=== PATIENT | female | born 1985 | race Caucasian/White ===

== ENCOUNTER 2019-05-16 10:22 | Emergency (ER) | payer BC, OTHER ==
[~2019-05-16] VITALS: Ht 167.6 cm; Wt 102.1 kg
--- OUTSIDE RECORDS SUMMARY | 2019-05-16 10:26 | XMS REPORT | Continuity of Care Document ---
Author Author [employer] Address Unknown Phone Unavailable Care Team Providers Care Personnel Manager Name Role Phone Revaluate Information [employer] Unavailable Unavailable Problems Problem Status Onset Date Classification Date Reported Comments Source Immunization due 01/25/2019 Diagnosis 01/25/2019 [facility] Acute pharyngitis 01/25/2019 Diagnosis 01/25/2019 [facility] Feeling feverish 01/25/2019 Diagnosis 01/25/2019 [facility] Acute upper respiratory infection 01/25/2019 Diagnosis 01/25/2019 [facility] Nausea 01/25/2019 Diagnosis 01/25/2019 [facility] Body mass index 30+ - obesity 01/25/2019 Diagnosis 01/25/2019 [facility] Elevated blood-pressure reading without diagnosis of hypertension 01/25/2019 Diagnosis 01/25/2019 [facility] Body Mass Index 30+ - Obesity 01/08/2018 Problem 01/25/2019 [facility] Influenza-like Symptoms 01/08/2018 Problem 01/08/2018 [facility] Cigarette Smoker 01/08/2018 Problem 01/25/2019 [facility] Influenza-like symptoms 01/08/2018 Diagnosis 01/08/2018 [facility] Cigarette smoker 01/08/2018 Diagnosis 01/08/2018 [facility] Eustachian Tube Disorder Problem 01/08/2018 [facility] Allergic Rhinitis Problem 01/25/2019 [facility] Streptococcal Sore Throat Problem 07/20/2016 [facility] Smoker Problem 07/20/2016 [facility] Otitis Media Problem 07/20/2016 [facility] Acute Sinusitis Problem 07/20/2016 [facility] Laryngitis Problem 07/20/2016 [facility] Acute Upper Respiratory Infection Problem 07/20/2016 [facility] Gastroenteritis Problem 07/20/2016 [facility] Expiratory Wheezing Problem 07/20/2016 [facility] Medications Medication Details Route Status Patient Instructions Ordering Provider Order Date Source benzonatate 200 MG Oral Capsule benzonatate 200 mg capsule Take 1 capsule 3 times a day by oral route as needed. Active [facility] Prednisone 20 MG Oral Tablet prednisone 20 mg tablet Take 1 tablet twice a day by oral route as directed for 5 days. Take with food. Active [facility] Hyoscyamine Sulfate 0.125 MG Sublingual Tablet [Levsin] Levsin/SL 0.[address] 1 tablet every 4 hours by sublingual route as needed for abdominal cramps/pain for 5 days. Active [facility] Ondansetron 8 MG Disintegrating Oral Tablet [Zofran] Zofran ODT [address] 1 tablet every 8 hours by translingual route as needed for nausea for 5 days. Active [facility] Brompheniramine Maleate 0.4 MG/ML / Dextromethorphan Hydrobromide 2 MG/ML / Pseudoephedrine Hydrochloride 6 MG/ML Oral Solution [Bromfed DM] Bromfed DM 2 mg-30 mg-10 mg/5 mL oral syrup Take 10 mL every 4 hours by oral route as needed. Active [facility] Fluticasone propionate 0.05 MG/ACTUAT Metered Dose Nasal [place] fluticasone propionate 50 mcg/actuation nasal spray,suspension [place] 1 spray twice a day by intranasal route for 7 days. Active [facility] Ondansetron 4 MG Disintegrating Oral Tablet ondansetron 4 mg disintegrating tablet Take 1 tablet every 8 hours by oral route as needed. Active [facility] Phentermine Hydrochloride 37.5 MG Oral Tablet phentermine 37.5 mg tablet TK ONE T PO QD Active [facility] Allergies, Adverse Reactions, Alerts No Known Medication Allergies Immunizations Immunization Date Given Site Status Last Updated Comments Source Tdap 11/04/2011 completed [facility] Results Order Name Results Value Reference Range Date Interpretation Comments Source RESULT negative 01/25/2019 [facility] SWAB LOCATION Left and Right tonsillar pillars 01/25/2019 [facility] Influenza A negative 01/25/2019 [facility] Influenza B negative 01/25/2019 [facility] Influenza A negative 01/08/2018 [facility] Influenza B negative 01/08/2018 [facility] Pathology Reports No Data Provided for This Section Diagnostic Reports No Data Provided for This Section Consultation Notes No Data Provided for This Section Discharge Summaries No Data Provided for This Section History and Physicals No Data Provided for This Section Vital Signs Vital Sign Value Date Comments Source Diastolic (mm Hg) 96 01/25/2019 [facility] Height 67 01/25/2019 [facility] Systolic (mm Hg) 126 01/25/2019 [facility] Weight 226 01/25/2019 [facility] Diastolic (mm Hg) 74 01/08/2018 [facility] Height 66 01/08/2018 [facility] Systolic (mm Hg) 112 01/08/2018 [facility] Weight 204 01/08/2018 [facility] Diastolic (mm Hg) 88 07/20/2016 [facility] Height 66 07/20/2016 [facility] Systolic (mm Hg) 126 07/20/2016 [facility] Weight 198 07/20/2016 [facility] Encounters Location Location Details Encounter Type Encounter Number Reason For Visit Attending Provider ADM Date DC Date Status Source [place] - [facility] - [id number] HAFSA GutierrezP: [address] [place] [address], Ph. [id number] Elizabeth Stanley 07/20/2016 [facility] [place] [facility] - [id number] HAFSA ColladoP-C: [address] [place] [address], Ph. [id number] Jennifer Leonard 01/08/2018 [facility] [place] - [facility] - [id number] Janet De Leon [employer]-C: [address] [place] [address], Ph. [id number] Janet De Leon 01/25/2019 [facility] Procedures Procedure Code Date Perfomer Comments Source 11/06/2010 [facility] Removal of Fallopian Tube 30245 11/06/2003 [facility] Removal of Ovary/tube(s) 29845 11/06/2003 [facility] Removal of Fallopian Tube 11/06/2003 [facility] Removal of Ovary/tube(s) 11/06/2003 [facility] Assessment and Plan No Data Provided for This Section Plan of Care No Data Provided for This Section Social History Social History Date Source Smoking Status Former Smoker 11/04/2014 [facility] Family History No Data Provided for This Section Advance Directives No Data Provided for This Section Functional Status No Data Provided for This Section
--- OUTSIDE RECORDS SUMMARY | 2019-05-16 10:26 | XMS REPORT | Encounter Summary ---
Author Organization Unknown Address [address] [place] [address] Phone [phone] Reason for Visit Medical Complaint Instructions 1. Influenza-like symptoms rapid flu (A+B) benzonatate 200 mg capsule prednisone 20 mg tablet 2. Cigarette smoker 3. Body mass index 30+ - obesity Discussion Note Pt is in NAD; Verbalizes understanding of all instructions with no questions at this time. Patient educational handouts: No information available. Plan of Care Patient Instructions Take fluticasone over the counter as needed for congestion. [place] one spray in each nostril twice a day. Take a warm, steamy shower, blow your nose thereafter, and spray in each nostril. Tilt your head up for about 10 seconds and breath through your mouth. Do not sniff or snort the medication in or else the medication will go to your throat and not be absorbed appropriately. Take steroid taper as dire cted and with food to avoid heartburn. Take benzonatate for cough as directed. Take medications as prescribed and follow up with a PCP within 2-3 if symptoms worsen as discussed. Recommend follow a low sodium/fat/carb diet and exercise 30-45 mins/d 3-4 days a week once symptoms resolve. I recommend smoking cessation. Reminders Provider Appointments None recorded. Lab Rapid Flu (A+B) 01/08/2018 [facility] Referral None recorded. Procedures None recorded. Surgeries None recorded. Imaging None recorded. Medications Name Start Date benzonatate 200 mg capsule Take 1 capsule 3 times a day by oral route as needed. prednisone 20 mg tablet Take 1 tablet twice a day by oral route as directed for 5 days. Take with food. Medications Administered None recorded. Vitals Height Weight BMI Blood Pressure 5 ft 6 in 204 lbs 32.9 kg/m2 112/74 mm[Hg] Lab Results Date Name Specimen Result Interpretation Description Value Range Status Address Rapid Flu (A+B) Influenza a negative [facility]: [address] [place] [address] Influenza B negative [facility]: [address] [place] [address] Allergies Code Code System Name Reaction Severity Status Onset NKDA Problems Name Status Onset Date Source Body Mass Index 30+ - Obesity Active 01/08/2018 Influenza-like Symptoms Active 01/08/2018 Cigarette Smoker Active 01/08/2018 Eustachian Tube Disorder Active Encounter Allergic Rhinitis Active Encounter Procedures Date Name Performed by 11/06/2010 Information not available 11/06/2003 Removal of Fallopian Tube Information not available 11/06/2003 Removal of Ovary/tube(s) Information not available Vaccine List None recorded. Social History Smoking Status Current Every Day Smoker Past Encounters 01/08/2018 Influenza-like Symptoms; Cigarette Smoker; Body Mass Index 30+ - Obesity Jennifer Aisha, [facility]-C: [address] [place] [address], Ph. History of Present Illness Irbvmch-Zuzfu-Pul Reported By: Patient HPI: Quality: symptoms worse during the day. Duration: 2 days. Context: no ill contacts, no tick/insect bites, no recent travel, no new medications; Pt is a cigarette smoker. Associated Symptoms: no fever/chills, no headache, no muscle aches, no rash, no lethargy, cough, nasal passage blockage (stuffiness), nasal discharge; sneezing, body aches and chills. Modifying Factors nothing gives relief Review of Systems:ROS as noted in the HPI Review of Systems Basic Reported By: Patient Physical Exam Adult Basic, Adult Female Complete Reported By: Patient Constitutional: General Appearance: obese. Level of Distress: NAD. Ambulation: ambulating normally Psychiatric: Mental Status: active and alert. Orientation: to time, to place, to person Qro-Wmsd-Qjzdg-Throat: Ears: no lesions on external ear, no outer ear tenderness, EACs clear, TMs clear. Hearing: no hearing loss. Nose: no lesions on external nose, nares patent, no septal deviation, nasal passages clear, no sinus tenderness, nasal discharge--rhinorrhea, post nasal drip. Lips, Teeth, and Gums: no mouth or lip ulcers, no bleeding gums, normal dentition. Oropharynx: moist mucous membranes, no erythema, no exudates, tonsils not enlarged Neck: Lymph Nodes: no cervical LAD Lungs: Respiratory effort: no dyspnea, no tachypnea, no use of accessory muscles, no intercostal retractions. Auscultation: breath sounds normal Cardiovascular: Heart Auscultation: RRR, no murmurs Neurologic: Gait and Station: normal gait, normal station
--- OUTSIDE RECORDS SUMMARY | 2019-05-16 10:26 | XMS REPORT | Encounter Summary ---
Author Organization Unknown Address [address] [place] [address] Phone [phone] Reason for Visit Medical Complaint Instructions 1. Acute upper respiratory infection upper respiratory infection (cold): care instructions fluticasone propionate 50 mcg/actuation nasal spray,suspension Bromfed DM 2 mg-30 mg-10 mg/5 mL oral syrup 2. Nausea nausea and vomiting: care instructions ondansetron 4 mg disintegrating tablet 3. Acute pharyngitis rapid strep group A, throat 4. Feeling feverish rapid flu (A+B) 5. Elevated blood-pressure reading without diagnosis of hypertension elevated blood pressure: care instructions 6. Body mass index 30+ - obesity A healthy lifestyle: care instructions 7. Immunization due Discussion Note: None recorded. Plan of Care Patient Instructions See care instructions provided. Reminders Provider Appointments None recorded. Lab Rapid Flu (A+B) 01/25/2019 [facility] Rapid Strep Group a, Throat 01/25/2019 [facility] Referral None recorded. Procedures None recorded. Surgeries None recorded. Imaging None recorded. Medications Name Start Date Bromfed DM 2 mg-30 mg-10 mg/5 mL oral syrup Take 10 mL every 4 hours by oral route as needed. fluticasone propionate 50 mcg/actuation nasal spray,suspension [place] 1 spray twice a day by intranasal route for 7 days. ondansetron 4 mg disintegrating tablet Take 1 tablet every 8 hours by oral route as needed. phentermine 37.5 mg tablet TK ONE T PO QD Medications Administered None recorded. Vitals Height Weight BMI Blood Pressure 5 ft 7 in 226 lbs 35.4 kg/m2 126/96 mm[Hg] Lab Results Date Name Specimen Result Interpretation Description Value Range Status Address Rapid Strep Group a, Throat Result negative [facility]: [address] [place] [address] Swab Location Left and Right tonsillar pillars [facility]: [address] [place] [address] Rapid Flu (A+B) Influenza a negative [facility]: [address] [place] [address] Influenza B negative [facility]: [address] [place] [address] Allergies Code Code System Name Reaction Severity Status Onset NKDA Problems Name Status Onset Date Source Body Mass Index 30+ - Obesity Active 01/08/2018 Cigarette Smoker Active 01/08/2018 Allergic Rhinitis Active Encounter Procedures Date Name Performed by 11/06/2010 Information not available 11/06/2003 Removal of Fallopian Tube Information not available 11/06/2003 Removal of Ovary/tube(s) Information not available Vaccine List Vaccine Type Tdap 11/04/2011 Social History Smoking Status Former Smoker Past Encounters 01/25/2019 Acute Upper Respiratory Infection; Nausea; Acute Pharyngitis; Feeling Feverish; Elevated Blood-pressure Reading without Diagnosis of Hypertension; Body Mass Index 30+ - Obesity; Immunization Due Janet Mosies, [facility]-C: [address] [place] [address], Ph. History of Present Illness Tdxyb-Krghqhilnr-Ebdvoxr Reported By: Patient HPI: Location: head/sinuses, throat. Quality: productive cough, sore throat, nasal/sinus congestion, dry cough. Duration: 1days. Onset/Timing: gradual. Context: no sick contacts, no foreign travel, non-smoker, allergies. Modifying factors: OTC medication. Associated Symptoms: no sputum production, no shortness of breath, no wheezing, no change in number of pillows needed to sleep at night, no sweats, no significant weight gain, no significant weight loss, no morning cough, no rash, no fever, fatigue, sore throat, diarrhea, nausea, muscle aches, headache Review of Systems:ROS as noted in the HPI Review of Systems Basic Reported By: Patient Physical Exam Adult Basic, Adult Female Complete Reported By: Patient Constitutional: General Appearance: obese. Level of Distress: NAD. Ambulation: ambulating normally Psychiatric: Mental Status: active and alert. Orientation: to time, to place, to person Eyes: Lids and Conjunctivae: non-injected, no discharge, no pallor Wle-Tnuw-Mgeaf-Throat: Ears: no lesions on external ear, no outer ear tenderness, EACs clear, TM opacified. Hearing: no hearing loss. Nose: no lesions on external nose, nares patent, no septal deviation, nasal passages clear, no sinus tenderness, nasal discharge--rhinorrhea, post nasal drip. Lips, Teeth, and Gums: no mouth or lip ulcers, no bleeding gums, normal dentition. Oropharynx: moist mucous membranes, no exudates, tonsils not enlarged, erythema Lungs: Respiratory effort: no dyspnea, no tachypnea, no use of accessory muscles, no intercostal retractions. Auscultation: breath sounds normal Cardiovascular: Heart Auscultation: RRR, no murmurs Abdomen: Bowel Sounds: normal. Inspection and Palpation: soft, non-distended, no guarding, no rebound tenderness, no masses, no CVA tenderness, LLQ tenderness, RLQ tenderness. Liver: non-tender, no hepatomegaly. Spleen: non-tender, no splenomegaly. Hernia: none palpable
--- OUTSIDE RECORDS SUMMARY | 2019-05-16 10:27 | XMS REPORT | Encounter Summary ---
Author Organization Unknown Address [address] [place] [address] Phone [phone] Reason for Visit Medical Complaint; stomach issues started this am Instructions 1. Gastroenteritis Levsin/SL 0.125 mg sublingual tablet Zofran ODT 8 mg disintegrating tablet Discussion Note: None recorded. Patient educational handouts: No information available. Plan of Care Patient Instructions Drink plenty of fluidsand get lots of rest. Try eat bland food like banana, chicken noodle soup, rice, applesauce, toast. Take medication as prescribed for indicate of length of time. If vomitting/diarrhea continue and cannot hold down any food/beverages, please go to nearest emergency center for further care. If no improvement in 2-3 days or worsening of symptoms, follow up with primary care physican. May continue pepto bismo x 2 days, no immodium for now. Reminders Provider Appointments None recorded. Lab None recorded. Referral None recorded. Procedures None recorded. Surgeries None recorded. Imaging None recorded. Medications Name Start Date Levsin/SL 0.[address] 1 tablet every 4 hours by sublingual route as needed for abdominal cramps/pain for 5 days. Zofran ODT [address] 1 tablet every 8 hours by translingual route as needed for nausea for 5 days. Medications Administered None recorded. Vitals Height Weight BMI Blood Pressure 5 ft 6 in 198 lbs 32 126/88 Lab Results None recorded. Allergies Name Reaction Severity Onset NKDA Problems Name Status Onset Date Source Streptococcal Sore Throat Active Encounter Smoker Active Encounter Eustachian Tube Disorder Active Encounter Otitis Media Active Encounter Acute Sinusitis Active Encounter Laryngitis Active Encounter Acute Upper Respiratory Infection Active Encounter Allergic Rhinitis Active Encounter Gastroenteritis Active Encounter Expiratory Wheezing Active Encounter Procedures Date Name Performed by 11/06/2003 Removal of Fallopian Tube Information not available 11/06/2003 Removal of Ovary/tube(s) Information not available Vaccine List None recorded. Social History Smoking Status Current Every Day Smoker Past Encounters 07/20/2016 Gastroenteritis Elizbaeth Stanley, [employer]: [address] [place] [address], Ph. History of Present Illness Ztrwaz-Auqpyabi-Saubawdt / Abdominal Pain Reported By: Patient HPI: Quality: frequent. Severity: moderate. Duration: present for < 1 week. Onset/Timing: abrupt onset. Context: no one else with similar symptoms, no recent camping, no recent picnic, no possible food sources, no recent travel, last bowel movement:. Alleviating factors: Peptobismal. Aggravating factors: eating. Associated Symptoms: no excess gas, no fever, no rash, no joint pain, no weight loss, no h eartburn, no blood in stool, no mucus in stool, no black or tarry stools, no weakness, no nutrient deficiency, no feeling of fullness/mass in throat, no bitter taste in the mouth, no difficulty swallowing (dysphagia), abdominal pain, nausea, vomiting Review of Systems Basic Reported By: Patient Constitutional: Constitutional: no fever Eyes: Eyes: no eye complaints Nugv-Vwuz-Npetk-Throat: Ears: no ear complaints. Nose: no nose/sinus problems. Mouth/Throat: no sore throat, no bleeding gums, no mouth complaints, no teeth problems Cardiovascular: Cardiovascular: no chest pain, no shortness of breath, no known heart murmur Respiratory: Respiratory: no cough, no wheezing, no shortness of breath Gastrointestinal: Gastrointestinal: abdominal pain, vomiting Genitourinary: Genitourinary: no urinary complaints, no discharge Musculoskeletal: Musculoskeletal: no muscle weakness, no arthralgias/joint pain, no back pain, muscle aches Skin: Skin: no abnormal / changing mole, no jaundice, no rashes Neurologic: Neurologic: no loss of consciousness, no weakness, no numbness, no seizures, no dizziness, no headaches Physical Exam Adult Basic, Adult Female Complete Constitutional: General Appearance: healthy-appearing, well-nourished, well-developed. Level of Distress: NAD. Ambulation: ambulating normally Psychiatric: Mental Status: active and alert. Orientation: to time, to place, to person Eyes: Lids and Conjunctivae: non-injected, no discharge, no pallor. Pupils: PERRLA. Corneas: grossly intact. EOM: EOMI. Lens: clear. Sclerae: non-icteric. Vision: acuity grossly intact Vqi-Hibt-Scigh-Throat: Ears: no lesions on external ear, no outer ear tenderness, EACs clear, TMs clear. Hearing: no hearing loss. Nose: no lesions on external nose, nares patent, no septal deviation, nasal passages clear, no sinus tenderness, no nasal discharge. Lips, Teeth, and Gums: no mouth or lip ulcers, no bleeding gums, normal dentition. Oropharynx: moist mucous membranes, no erythema, no exudates, tonsils not enlarged Neck: Neck: supple, trachea midline, no masses, FROM. Lymph Nodes: no cervical LAD, no supraclavicular LAD. Thyroid: no enlargement, non-tender, no nodules Lungs: Respiratory effort: no dyspnea, no tachypnea, no use of accessory muscles, no intercostal retractions. Auscultation: breath sounds normal Cardiovascular: Heart Auscultation: RRR, no murmurs. Neck vessels: no carotid bruits Abdomen: Bowel Sounds: normal. Inspection and Palpation: soft, non-distended, no guarding, no rebound tenderness, no masses, no CVA tenderness, LUQ tenderness. Liver: non-tender, no hepatomegaly. Spleen: non-tender, no splenomegaly. Hernia: none palpable
[2019-05-16] MEDS ORDERED: KETOROLAC TROMETHAMINE 60 MG/2 ML VIAL IM ONE (11:00)
[2019-05-16] MEDS ORDERED: DIAZEPAM 5 MG TAB PO ONE (11:00)
[2019-05-16] MEDS ORDERED: NAPROXEN250 MG PO (11:55)
[2019-05-16] MEDS ORDERED: ROBAXIN-750750 MG PO (11:55)
[2019-05-16] MEDS ORDERED: SODIUM CHLORIDE 0.9% 1000ML 2,000 ML ONE (15:41)
== END 2019-05-16 12:14 | disposition home or self-care (01) ==
LOC: ER 10:22
DX: M94.0 Chondrocostal junction syndrome [Tietze] (principal); R07.89 Other chest pain
CPT/HCPCS: 99283; J1885; J7030

== ENCOUNTER 2020-07-29 18:30 | Emergency (ER) | payer BC ==
[~2020-07-29] VITALS: Ht 167.6 cm; Wt 102.1 kg
[2020-07-29] MEDS ORDERED: SODIUM CHLORIDE 0.9% 1000ML 1,000 ML IV STA (18:42)
[2020-07-29] MEDS ORDERED: KETOROLAC TROMETHAMINE 30 MG/ML VIAL IV STA (18:44)
[2020-07-29] MEDS ORDERED: ONDANSETRON HCL INJ 2MG/ML 2ML 2 MG/ML VIAL IV STA (18:44)
--- NOTE | 2020-07-29 18:46 | Emergency Department Note ---
History of Present Illnes History of Present Illness Chief Complaint: General Medicine Complaints History of Present Illness This is a 34 year old female presents to the ED for R flank pain of 5 days duration. Historian: Patient Arrival Mode: Car Onset (how long ago): day(s) (5) Severity: moderate Onset quality: gradual Duration (how long): day(s) (5) Timing of current episode: constant Progression: worsening Context: Denies recent illness, Denies recent surgery, Denies recent immobiliz ation, Denies recent travel, Denies trauma/injury, Denies new medications, Denies hx of DVT/PE, Denies non-compliance w/ medications, Denies other Relieving factors: none Exacerbating factors: none Associated symptoms: Denies denies other symptoms, Denies confusion, Denies chest pain, Denies cough, Denies diaphoresis, Denies fever/chills, Denies headaches, Denies loss of appetite, Denies malaise, Denies nausea/vomiting, Denies rash, Denies seizure, Denies shortness of breath, Denies syncope, Denies weakness, Denies other Previous service: tests performed, one or more referrals Past Medical/Family History Physician Review I have reviewed the patient's past medical and family history. Any updates have been documented here. Past Medical History Recent Fever: No Clinical Suspicion of Infectio: No New/Unexplained Change in Ment: No Past Medical History: None Past Surgical History: Other Surgery: Oophorectomy left Social History Smoking Cessation: Never Smoker Alcohol Use: None Any Illegal Drug Use: No Physically hurt or threatened: No Other Last Tetanus: UNKNOWN Review of Systems Review of Systems Constitutional: Reports no symptoms EENTM: Reports no symptoms Cardiovascular: Reports no symptoms Respiratory: Reports no symptoms Gastrointestinal: Reports nausea Genitourinary: Reports other Musculoskeletal: Reports no symptoms Integumentary: Reports no symptoms Neurological: Reports no symptoms Psychological: Reports no symptoms Endocrine: Reports no symptoms Hematological/Lymphatic: Reports no symptoms Physical Exam Related Data Allergies: Coded Allergies: No Known Allergies (Unverified , 05/16/19) Triage Vital Signs Vital Signs Date Time Temp Pulse Resp B/P (MAP) Pulse Ox O2 Delivery O2 Flow Rate FiO2 07/29/20 18:36 97.8 93 15 168/106 100 Room Air Physical Exam CONSTITUTIONAL Constitutional: Present ill appearing HENT HENT: Present normocephalic, Present atraumatic, Present oropharynx clear/moist, Present nose normal HENT L/R: Present left ext ear normal, Present right ext ear normal EYES Eyes: Reports PERRL, Reports conjunctivae normal NECK Neck: Present ROM normal PULMONARY Pulmonary: Present effort normal, Present breath sounds normal CARDIOVASCULAR Cardiovascular: Present regular rhythm, Present heart sounds normal, Present capillary refill normal, Present normal rate GASTROINTESTINAL Abdominal: Present soft, Present right CVA tenderness GENITOURINARY Genitourinary: Present exam deferred SKIN Skin: Present warm, Present dry MUSCULOSKELETAL Musculoskeletal: Present ROM normal NEUROLOGICAL Neurological: Present alert, Present oriented x 3, Present no gross motor or sensory deficits PSYCHOLOGICAL Psychological: Present mood/affect normal, Present judgement normal Results Laboratory Lab results reviewed: Yes Laboratory comments Laboratory Tests Test 07/29/20 21:35 07/29/20 20:35 07/29/20 18:47 Urine Color Yellow (YELLOW) Urine Clarity Clear (CLEAR) Urine pH 6 (5 - 7) Urine Specific [place] 1.010 (1.010-1.025) Urine Protein Negative (NEGATIVE) Urine Glucose (UA) Negative (NEGATIVE) Urine Ketones Trace (NEGATIVE) Urine Blood Negative (NEGATIVE) Urine Nitrite Negative (NEGATIVE) Urine Bilirubin Negative (NEGATIVE) Urine Urobilinogen 0.2 mg/dL (0.2 - 1) Urine Leukocyte Esterase Negative (NEGATIVE) Urine RBC None /HPF (0-5) Urine WBC None /HPF (0-5) Urine Epithelial Cells None /LPF (NONE) Urine Bacteria None /HPF (NONE) White Blood Count 17.84 x10e3/uL (4.8-10.8) Red Blood Count 5.47 x10e6/uL (3.6-5.1) Hemoglobin 15.7 g/dL (12.0-16.0) Hematocrit 47.1 % (34.2-44.1) Mean Corpuscular Volume 86.1 fL (81-99) Mean Corpuscular Hemoglobin 28.7 pg (28-32) Mean Corpuscular Hemoglobin Concent 33.3 g/dL (31-35) Red Cell Distribution Width 13.1 % (11.7-14.4) Platelet Count 303 x10e3/uL (140-360) Neutrophils (%) (Auto) 74.2 % (38.7-80.0) Lymphocytes (%) (Auto) 19.6 % (18.0-39.1) Monocytes (%) (Auto) 4.4 % (4.4-11.3) Eosinophils (%) (Auto) 0.6 % (0.0-6.0) Basophils (%) (Auto) 0.3 % (0.0-1.0) Neutrophils # (Auto) 13.2 (2.1-6.9) Lymphocytes # (Auto) 3.5 (1.0-3.2) Monocytes # (Auto) 0.8 (0.2-0.8) Eosinophils # (Auto) 0.1 (0.0-0.4) Basophils # (Auto) 0.1 (0.0-0.1) Absolute Immature Granulocyte (auto 0.16 x10e3/uL (0-0.1) Sodium Level 139 mmol/L (136-145) Potassium Level 3.7 mmol/L (3.5-5.1) Chloride Level 104 mmol/L (98-107) Carbon Dioxide Level 24 mmol/L (22-29) Anion Gap 14.7 mmol/L (8-16) Blood Urea Nitrogen 7 mg/dL (7-26) Creatinine 0.84 mg/dL (0.57-1.11) Estimat Glomerular Filtration Rate > 60 ML/MIN (60-) BUN/Creatinine Ratio 8 (6-25) Glucose Level 106 mg/dL (74-118) Calcium Level 9.3 mg/dL (8.4-10.2) Total Bilirubin 0.8 mg/dL (0.2-1.2) Aspartate Amino Transf (AST/SGOT) 12 IU/L (5-34) Alanine Aminotransferase (ALT/SGPT) 18 IU/L (0-55) Alkaline Phosphatase 70 IU/L (40-150) Total Protein 7.8 g/dL (6.5-8.1) Albumin 4.6 g/dL (3.5-5.0) Globulin 3.2 g/dL (2.3-3.5) Albumin/Globulin Ratio 1.4 (0.8-2.0) Lipase 13 U/L (8-78) Human Chorionic Gonadotropin, Qual Negative (NEGATIVE) Imaging Imaging results reviewed: Yes Impressions [place] [id number] [place] [address] Patient Name: VALARIE LANDON MR #: [id number] : 1985 Age/Sex: 34/F Req #: [id number] Adm Physician: Ordered by: MIGUEL MELENDEZ DO Report #: [id number] Location: ER Room/Bed: Procedure: [id number] CT/CT ABDOMEN/PELVIS W Exam Date: 07/29/20 Exam Time: 2008 REPORT STATUS: Signed EXAM: CT Abdomen and Pelvis WITH contrast INDICATION: Right flank pain COMPARISON: None. TECHNIQUE: Abdomen and pelvis were scanned utilizing a multidetector helical scanner from the lung base to the pubic symphysis after administration of IV contrast. Coronal and sagittal reformations were obtained. Routine protocol was performed. Scan was performed when during portal venous phase. IV CONTRAST: 100 mL of Isovue 370 ORAL CONTRAST: None COMPLICATIONS: None RADIATION DOSE: Total DLP: 911.49 mGy*cm Estimated effective dose: (DLP x 0.015 x size factor) mSv CTDIvol has been reviewed. It is below the limits set by the Radiation Protocol Committee (RPC). Dose modulation, iterative reconstruction, and/or weight based adjustment of the mA/kV was utilized to reduce the radiation dose to as low as reasonably achievable. FINDINGS: LINES and TUBES: None. LOWER THORAX: Unremarkable HEPATOBILIARY: The liver is diffuse hypodense compared to the spleen, consistent with diffuse hepatic diffuse hepatic steatosis. No focal hepatic lesions. No biliary ductal dilation. GALLBLADDER: No radio-opaque stones or sludge. No wall thickening. SPLEEN: No splenomegaly. PANCREAS: No focal masses or ductal dilatation. ADRENALS: No adrenal nodules KIDNEYS/URETERS: Kidneys enhance symmetrically. No hydronephrosis. No cystic or solid mass lesions. No stones. GI TRACT: No abnormal distention, wall thickening, or evidence of bowel obstruction. Appendix is normal. PELVIC ORGANS/BLADDER: Unremarkable. LYMPH NODES: No lymphadenopathy. VESSELS: Scattered mild arterial vascular calcifications. PERITONEUM / RETROPERITONEUM: No free air or fluid. BONES: Unremarkable. SOFT TISSUES: Unremarkable. IMPRESSION: No acute abdominopelvic abnormality identified, specifically no obstructive renal or ureteral stones. Signed by: Crystal Moctezuma MD on 07/29/2020 8:59 PM Dictated By: CRYSTAL MOCTEZUMA MD 58 Transcribed By: LESVIA on 07/29/202058 COPY TO: MIGUEL MELENDEZ DO~ Assessment & Plan Medical Decision Making MDM Diff Dx : appendicitis, kidney stone, kidney infection, musc strain, perforated viscus Reassessment Reassessment Marked improvement in symptoms . Case d/w Dr Hester who agreed to see patient as an outpatient in the next 24 hour prior Assessment & Plan Final Impression: (1) Flank pain (2) Leukocytosis Depart Disposition: HOME, SELF-CARE Last Vital Signs Date Time Temp Pulse Resp B/P (MAP) Pulse Ox O2 Delivery O2 Flow Rate FiO2 07/29/20 18:36 97.8 93 15 168/106 100 Room Air Home Meds Active Scripts Methocarbamol (ROBAXIN-750) 750 Mg Tablet, 750 MG PO Q8HR PRN for MUSCLE SPASMS, #12 Prov:JERICA BARCENAS DO 05/16/19 Naproxen (NAPROXEN) 250 Mg Tablet, 250 MG PO F2TADWD, #10 TAB Prov:JERICA BARCENAS DO 05/16/19 Medications in the ED Sodium Chloride 1,000 ml @ 0 mls/hr Q0M STAT IV ; Start 07/29/20 at 18:42; Stop 07/29/20 at 18:44; Status DC MIGUEL MELENDEZ DO Jul 29, 2020 18:46
[2020-07-29 19:08] LABS: BASOPHILS # (AUTO) 0.1 (0.0-0.1); BASOPHILS % 0.3 % (0.0-1.0); EOSINOPHILS # (AUTO) 0.1 (0.0-0.4); EOSINOPHILS % 0.6 % (0.0-6.0); HEMATOCRIT 47.1 % (34.2-44.1); HEMOGLOBIN 15.7 g/dL (12.0-16.0); LYMPHOCYTES # (AUTO) 3.5 (1.0-3.2); LYMPHOCYTES % 19.6 % (18.0-39.1); MEAN CORPUSCULAR HEMOGLOBIN 28.7 pg (28-32); MEAN CORPUSCULAR HGB CONC 33.3 g/dL (31-35); MEAN CORPUSCULAR VOLUME 86.1 fL (81-99); MONOCYTES # (AUTO) 0.8 (0.2-0.8); MONOCYTES % 4.4 % (4.4-11.3); NEUTROPHILS # (AUTO) 13.2 (2.1-6.9); NEUTROPHILS % 74.2 % (38.7-80.0); PLATELET COUNT 303 x10e3/uL (140-360); RED BLOOD COUNT 5.47 x10e6/uL (3.6-5.1); RED CELL DISTRIBUTION WIDTH 13.1 % (11.7-14.4)
[2020-07-29 19:26] LABS: ALANINE AMINOTRANSFERASE 18 IU/L (0-55); ALBUMIN 4.6 g/dL (3.5-5.0); ALBUMIN/GLOBULIN RATIO 1.4 (0.8-2.0); ALKALINE PHOSPHATASE 70 IU/L (40-150); ANION GAP 14.7 mmol/L (8-16); BLOOD UREA NITROGEN 7 mg/dL (7-26); BUN/CREATININE RATIO 8 (6-25); CALCIUM 9.3 mg/dL (8.4-10.2); CARBON DIOXIDE 24 mmol/L (22-29); CHLORIDE 104 mmol/L (98-107); CREATININE, SERUM 0.84 mg/dL (0.57-1.11); EST GLOMERULAR FILTRATION RATE > 60 ML/MIN (60-); GLUCOSE 106 mg/dL (74-118); LIPASE 13 U/L (8-78); POTASSIUM 3.7 mmol/L (3.5-5.1); SODIUM 139 mmol/L (136-145)
[2020-07-29] MEDS ORDERED: MORPHINE SULFATE INJ 4 MG/ML INJ 1ML IV STA (19:30)
[2020-07-29] MEDS ORDERED: PIPER-TAZ 3.375 GM 50 ML IV SCH (19:45)
[2020-07-29] MEDS ORDERED: IOPAMIDOL 370 MG/ML 200 ML INFUS..BTL INJ ONE (20:27)
[2020-07-29] MEDS ORDERED: SODIUM CHLORIDE 0.9% 50ML 50 ML ONE (20:27)
--- NOTE | 2020-07-29 21:02 | Diagnostic Imaging Report ---
EXAM: CT Abdomen and Pelvis WITH contrast INDICATION: Right flank pain COMPARISON: None. TECHNIQUE: Abdomen and pelvis were scanned utilizing a multidetector helical scanner from the lung base to the pubic symphysis after administration of IV contrast. Coronal and sagittal reformations were obtained. Routine protocol was performed. Scan was performed when during portal venous phase. IV CONTRAST: 100 mL of Isovue 370 ORAL CONTRAST: None COMPLICATIONS: None RADIATION DOSE: Total DLP: 911.49 mGy*cm Estimated effective dose: (DLP x 0.015 x size factor) mSv CTDIvol has been reviewed. It is below the limits set by the Radiation Protocol Committee (RPC). Dose modulation, iterative reconstruction, and/or weight based adjustment of the mA/kV was utilized to reduce the radiation dose to as low as reasonably achievable. FINDINGS: LINES and TUBES: None. LOWER THORAX: Unremarkable HEPATOBILIARY: The liver is diffuse hypodense compared to the spleen, consistent with diffuse hepatic diffuse hepatic steatosis. No focal hepatic lesions. No biliary ductal dilation. GALLBLADDER: No radio-opaque stones or sludge. No wall thickening. SPLEEN: No splenomegaly. PANCREAS: No focal masses or ductal dilatation. ADRENALS: No adrenal nodules KIDNEYS/URETERS: Kidneys enhance symmetrically. No hydronephrosis. No cystic or solid mass lesions. No stones. GI TRACT: No abnormal distention, wall thickening, or evidence of bowel obstruction. Appendix is normal. PELVIC ORGANS/BLADDER: Unremarkable. LYMPH NODES: No lymphadenopathy. VESSELS: Scattered mild arterial vascular calcifications. PERITONEUM / RETROPERITONEUM: No free air or fluid. BONES: Unremarkable. SOFT TISSUES: Unremarkable. IMPRESSION: No acute abdominopelvic abnormality identified, specifically no obstructive renal or ureteral stones. Signed by: Colin Rothman MD on 07/29/2020 8:59 PM
[2020-07-29 22:02] LABS: BILIRUBIN,URINE NEGATIVE (NEGATIVE); CLARITY,URINE CLEAR (CLEAR); COLOR,URINE YELLOW (YELLOW); KETONES,URINE TRACE (NEGATIVE); LEUKOCYTE ESTERASE ,URINE NEGATIVE (NEGATIVE); NITRITE,URINE NEGATIVE (NEGATIVE); PROTEIN,URINE DIPSTICK NEGATIVE (NEGATIVE); URINE UROBILINOGEN 0.2 mg/dL (0.2 - 1)
== END 2020-07-29 22:13 | disposition home or self-care (01) ==
LOC: ER 18:45
DX: M54.5 Low back pain (principal); D72.829 Elevated white blood cell count, unspecified
CPT/HCPCS: 36415; 74177; 80053; 81001; 83690; 84702; 85025; 99284; J1885; J2270; J2405; J2543; J7030; Q9967; U0002

== ENCOUNTER → 2020-07-29 | Outpatient (CLI) | payer BC ==
[~2020-07-29] MED LIST: NAPROXEN250 MG PO; ROBAXIN-750750 MG PO
--- NOTE | 2020-07-29 16:57 | Diagnostic Imaging Report ---
EXAMINATION: CHEST 2 VIEWS INDICATION: Chest pain COMPARISON: Chest radiograph 06/16/2007 FINDINGS: LINES/TUBES:None LUNGS:The lungs are moderately inflated. Left basilar subsegmental atelectasis. No focal pneumonia or pulmonary edema. PLEURA:No pleural effusion or pneumothorax. MEDIASTINUM:The cardiomediastinal silhouette appears normal in size and shape. BONES/SOFT TISSUES:No acute osseous injury. ABDOMEN:No free air under the diaphragm. IMPRESSION: Left basilar subsegmental atelectasis. No focal pneumonia or pulmonary edema. Signed by: Ankit Daniels MD on 07/29/2020 4:53 PM
--- NOTE | 2020-07-29 16:58 | Diagnostic Imaging Report ---
EXAMINATION: RIBS UNILAT W/CXR INDICATION: Chest pain COMPARISON: Chest radiograph 07/29/2020 FINDINGS: LINES/TUBES:None LUNGS:The lungs are moderately inflated. No focal consolidation or pulmonary edema. Left basilar subsegmental atelectasis. PLEURA:No pleural effusion or pneumothorax. MEDIASTINUM:The cardiomediastinal silhouette appears normal in size and shape. BONES/SOFT TISSUES:No acute osseous injury. ABDOMEN:No free air under the diaphragm. IMPRESSION: No displaced rib fracture. Signed by: Ankit Daniels MD on 07/29/2020 4:55 PM
--- NOTE | 2020-07-29 18:59 | Diagnostic Imaging Report ---
EXAM: Complete Abdominal Ultrasound INDICATION: RIGHT UPPER QUADRANT PAIN COMPARISON: None. TECHNIQUE: Transverse and longitudinal images of the upper abdomen were obtained. FINDINGS: Liver: Size: 17.5 cm in the right midclavicular line, normal Appearance: Slightly echogenic, smooth contour Mass: No focal masses Spleen: Size: 13.3 x 4.6 x 5.0 cm in length, normal Echogenicity: Normal Mass: No focal masses Gallbladder: Stones/Sludge: None Wall: 0.2 cm Appearance: No pericholecystic fluid or hydrops. Sonographic Valdez's Sign: Negative Bile Ducts: Intrahepatic Ducts: No dilatation Extrahepatic Ducts: Common bile duct measures 0.6 cm, no dilatation Pancreas: Visualized portions of the pancreatic head, neck and proximal body are normal. Right Kidney: Size: 11.1 x 4.4 x 4.7 cm Echogenicity: Normal Parenchymal thickness: Normal Collecting System: No hydronephrosis Stone: None Cyst/Mass: None Left Kidney: Size: 12.0 x 5.2 x 6.7 cm Echogenicity: Normal Parenchymal thickness: Normal Collecting System: No hydronephrosis Stone: None Cyst/Mass: None Vessels: Aorta: Visualized portions are normal Inferior Vena Cava: Visualized portions are normal Main Portal Vein: 0.7 cm, normal size with hepatopetal flow. Free Fluid: No ascites or pleural effusion IMPRESSION: Mild hepatomegaly with steatosis. Otherwise normal sonographic exam. Signed by: Colin Rothman MD on 07/29/2020 6:55 PM
== END ==
LOC: US 16:25
PROVIDERS: ATTEND Family Medicine
DX: R10.11 Right upper quadrant pain (principal); R07.89 Other chest pain; F17.200 Nicotine dependence, unspecified, uncomplicated
CPT/HCPCS: 71046; 71101; 76700

== ENCOUNTER 2023-04-25 14:38 | Inpatient (IN) | payer BC, OTHER ==
[~2023-04-25] VITALS: Ht 167.6 cm; Wt 102.1 kg
[2023-04-25] MEDS ORDERED: ENALAPRILAT IV INJ 1.25 MG/ML VIAL IV STA ×2 (14:53→17:35)
[2023-04-25] MEDS ORDERED: DIAZEPAM 5 MG TAB PO ONE (15:00)
[2023-04-25 15:05] LABS: BASOPHILS # (AUTO) 0.1 (0.0-0.1); BASOPHILS % 0.3 % (0.0-1.0); EOSINOPHILS # (AUTO) 0.1 (0.0-0.4); EOSINOPHILS % 0.8 % (0.0-6.0); HEMATOCRIT 43.6 % (34.2-44.1); HEMOGLOBIN 14.9 g/dL (12.0-16.0); LYMPHOCYTES # (AUTO) 3.1 (1.0-3.2); LYMPHOCYTES % 21.2 % (18.0-39.1); MEAN CORPUSCULAR HEMOGLOBIN 29.1 pg (28-32); MEAN CORPUSCULAR HGB CONC 34.2 g/dL (31-35); MEAN CORPUSCULAR VOLUME 85.2 fL (81-99); MONOCYTES # (AUTO) 0.7 (0.2-0.8); MONOCYTES % 4.6 % (4.4-11.3); NEUTROPHILS # (AUTO) 10.6 (2.1-6.9); NEUTROPHILS % 72.6 % (38.7-80.0); PLATELET COUNT 280 x10e3/uL (140-360); RED BLOOD COUNT 5.12 x10e6/uL (3.6-5.1); RED CELL DISTRIBUTION WIDTH 12.9 % (11.7-14.4)
[2023-04-25 15:19] LABS: ANION GAP 13.5 mmol/L (8-16); CREATININE, SERUM 0.72 mg/dL (0.57-1.11); POTASSIUM 3.5 mmol/L (3.5-5.1)
[2023-04-25] MEDS ORDERED: HEPARIN SOD (PORCINE) 5,000 UNIT/ML VIAL IV ONE (17:45)
[2023-04-25] MEDS ORDERED: FENTANYL CITRATE/PF 100MCG/2 ML INJ IV ONE ×2 (17:45→19:15)
[2023-04-25] MEDS ORDERED: METOCLOPRAMIDE HCL 10 MG/2ML VIAL IV ONE (17:45)
[2023-04-25] MEDS ORDERED: IOPAMIDOL 370 MG/ML 100 ML INFUS..BTL INJ ONE (18:15)
[2023-04-25] MEDS ORDERED: SODIUM CHLORIDE 0.9% 100 ML ONE (18:15)
[2023-04-25] MEDS ORDERED: HYDRALAZINE HCL 20 MG/ML VIAL IV STA (19:11)
[2023-04-25] MEDS ORDERED: HYDRALAZINE HCL 25 MG TAB PO ONE (19:15)
[2023-04-25] MEDS ORDERED: SODIUM CHLORIDE FLUSH 10 ML SYR INJ PRN (19:30)
[2023-04-25 21:20] VITALS: BP 173/101; PULSE 63; RESP 18; TEMP 98.4; O2SAT 97
[2023-04-25] MEDS: CLONIDINE HCL 0.1 MG TAB PO SCH (22:07)
[2023-04-25] MEDS ORDERED: LOSARTAN POTASSIUM 100 MG TAB PO ONE (22:15)
[2023-04-25] MEDS ORDERED: Morphine 2mg Syringe 2 MG/ML SYR IV PRN (22:15)
[2023-04-25] MEDS ORDERED: METHYLPREDNISOLONE SOD SUCC 125 MG/2ML VIAL IV ONE (22:30)
[2023-04-25] MEDS: ONDANSETRON HCL INJ 2MG/ML 2ML 2 MG/ML VIAL IV PRN (22:40)
[2023-04-25] MEDS ORDERED: METHYLPREDNISOLONE SOD SUCC 40 MG/ML VIAL 1ML IV ONE (22:45)
[2023-04-25 22:53] VITALS: BP 173/101; PULSE 64; RESP 22; TEMP 98.4; O2SAT 100
[2023-04-26] VITALS (7 sets, daily range): BP systolic 133–184; BP diastolic 70–101; PULSE 59–92; RESP 18–22; TEMP 97.4–98.6; O2SAT 97–100
[2023-04-26 01:02] LABS: CREATINE KINASE 76 IU/L (29-168)
[2023-04-26] MEDS: ONDANSETRON HCL INJ 2MG/ML 2ML 2 MG/ML VIAL IV PRN ×4 (03:02→19:33)
[2023-04-26] MEDS: Morphine 2mg Syringe 2 MG/ML SYR IV PRN ×5 (03:03→19:34)
[2023-04-26 05:56] LABS: BASOPHILS % 0.3 % (0.0-1.0); HEMATOCRIT 47.1 % (34.2-44.1); HEMOGLOBIN 15.7 g/dL (12.0-16.0); LYMPHOCYTES # (AUTO) 1.4 (1.0-3.2); LYMPHOCYTES % 10.2 % (18.0-39.1); MEAN CORPUSCULAR HEMOGLOBIN 28.9 pg (28-32); MEAN CORPUSCULAR HGB CONC 33.3 g/dL (31-35); MEAN CORPUSCULAR VOLUME 86.7 fL (81-99); MONOCYTES # (AUTO) 0.1 (0.2-0.8); MONOCYTES % 0.6 % (4.4-11.3); NEUTROPHILS # (AUTO) 12.3 (2.1-6.9); PLATELET COUNT 242 x10e3/uL (140-360); RED BLOOD COUNT 5.43 x10e6/uL (3.6-5.1); RED CELL DISTRIBUTION WIDTH 12.8 % (11.7-14.4)
[2023-04-26] MEDS: CLONIDINE HCL 0.1 MG TAB PO SCH ×3 (05:59→21:38)
[2023-04-26 06:26] LABS: ANION GAP 14.6 mmol/L (8-16); CALCIUM 9.1 mg/dL (8.4-10.2); CREATININE, SERUM 0.75 mg/dL (0.57-1.11); POTASSIUM 3.6 mmol/L (3.5-5.1)
[2023-04-26] MEDS: HYDRALAZINE HCL 20 MG/ML VIAL IV PRN (08:28)
[2023-04-26 17:35] LABS: CREATINE KINASE 80 IU/L (29-168)
[2023-04-26] MEDS: PREGABALIN 75 MG CAP PO SCH (21:38)
[2023-04-26] MEDS: METHYLPREDNISOLONE SOD SUCC 40 MG/ML VIAL 1ML INJ SCH (21:39)
[2023-04-26] MEDS ORDERED: METHYLPREDNISOLONE SOD SUCC 125 MG/2ML VIAL IV SCH (22:00)
[2023-04-27] VITALS (10 sets, daily range): BP systolic 159–203; BP diastolic 78–97; PULSE 63–98; RESP 17–20; TEMP 98–98.7; O2SAT 98–100
[2023-04-27] MEDS: Morphine 2mg Syringe 2 MG/ML SYR IV PRN ×4 (00:01→18:38)
[2023-04-27] MEDS: HYDRALAZINE HCL 20 MG/ML VIAL IV PRN ×2 (00:02→15:53)
[2023-04-27] MEDS: ONDANSETRON HCL INJ 2MG/ML 2ML 2 MG/ML VIAL IV PRN (00:02)
[2023-04-27] MEDS ORDERED: Morphine 2mg Syringe 2 MG/ML SYR IV ONE (02:15)
[2023-04-27] MEDS: CLONIDINE HCL 0.1 MG TAB PO SCH ×3 (05:14→22:03)
[2023-04-27] MEDS: METHYLPREDNISOLONE SOD SUCC 40 MG/ML VIAL 1ML INJ SCH (05:14)
[2023-04-27] MEDS: PREGABALIN 75 MG CAP PO SCH ×3 (08:57→20:24)
[2023-04-27] MEDS ORDERED: SUGAMMADEX SODIUM 200 MG/2 ML VIAL IV ONE ×2 (10:54→12:41)
[2023-04-27] MEDS ORDERED: ACETAMINOPHEN 1000 MG/100 ML 100 ML IV ONE (10:54)
[2023-04-27] MEDS ORDERED: BUPIVACAINE 0.5%/EPI 30 ML SDV INJ ONE (10:56)
[2023-04-27] MEDS ORDERED: Vancomycin IV 1 GM VIAL ONE (10:56)
[2023-04-27] MEDS ORDERED: THROMBIN FOR SOLN 5,000 UNIT VIAL ONE (10:56)
[2023-04-27] MEDS ORDERED: CEFAZOLIN SODIUM 2 GM ONE ×2 (11:08→11:14)
[2023-04-27] MEDS ORDERED: HYDROCODON-ACE1 EAC9 PO (12:43)
[2023-04-27] MEDS ORDERED: VALIUM5 MG PO (12:45)
[2023-04-27] MEDS ORDERED: MAGNESIUM/ALUMINUM/SIMETHICONE 30 ML UDC PO PRN (12:45)
[2023-04-27] MEDS ORDERED: CARISOPRODOL 350 MG TAB PO PRN (12:45)
[2023-04-27] MEDS ORDERED: PROMETHAZINE HCL (IM) 25 MG/ML VIAL IM PRN (12:45)
[2023-04-27] MEDS ORDERED: DIAZEPAM 5 MG TAB PO PRN (12:45)
[2023-04-27] MEDS ORDERED: ONDANSETRON HCL INJ 2MG/ML 2ML 2 MG/ML VIAL IV PRN (12:45)
[2023-04-27] MEDS ORDERED: ZOLPIDEM TARTRATE 5 MG TAB PO PRN (12:45)
[2023-04-27] MEDS ORDERED: FENTANYL CITRATE/PF 100MCG/2 ML INJ ONE ×2 (13:07→13:31)
[2023-04-27] MEDS ORDERED: OXYCODONE/ACETAMINOPHEN 5-325 1 EACH TABLET PO PRN (13:15)
[2023-04-27] MEDS ORDERED: KETOROLAC TROMETHAMINE 30 MG/ML VIAL ONE (13:28)
[2023-04-27] MEDS ORDERED: LIDOCAINE HCL 2% LOCAL INJ 5 ML SDV VIAL INJ ONE (13:28)
[2023-04-27] MEDS ORDERED: ONDANSETRON HCL INJ 2MG/ML 2ML 2 MG/ML VIAL ONE (13:28)
[2023-04-27] MEDS ORDERED: POVIDONE IODINE 0.05% 0.05 % ML PO ONE (13:28)
[2023-04-27] MEDS ORDERED: SEVOFLURANE INHAL SOLN 250 ML PEN BTL ONE (13:28)
[2023-04-27] MEDS ORDERED: DEXAMETHASONE SOD PHOS INJ 4 MG/ML SDV ONE (13:28)
[2023-04-27] MEDS ORDERED: ROCURONIUM BROMIDE 10 MG/ML 5ML VIAL IV ONE (13:28)
[2023-04-27] MEDS ORDERED: PROPOFOL IV EMULSION 10 MG/ML 20 ML VIAL ONE (13:28)
[2023-04-27] MEDS ORDERED: DEXAMETHASONE SOD PHOS 10 MG/1 ML VIAL IV SCH (14:00)
[2023-04-27] MEDS: LACTATED RINGER'S 1,000 ML IV SCH ×2 (14:03→22:11)
[2023-04-27] MEDS: DEXAMETHASONE SOD PHOS INJ 4 MG/ML SDV IV SCH (17:21)
[2023-04-27] MEDS: HYDROMORPHONE 2MG/ML 2 MG/ML ML IV PRN (22:08)
[2023-04-28] VITALS (9 sets, daily range): BP systolic 141–198; BP diastolic 74–99; PULSE 64–95; RESP 16–20; TEMP 97.7–98.4; O2SAT 97–99
[2023-04-28] MEDS: Morphine 2mg Syringe 2 MG/ML SYR IV PRN ×2 (01:14→06:53)
[2023-04-28] MEDS: CEPACOL SORE THROAT LOZENGES PO PRN ×4 (03:33→23:18)
[2023-04-28] MEDS: HYDROMORPHONE 2MG/ML 2 MG/ML ML IV PRN (03:34)
[2023-04-28] MEDS: LACTATED RINGER'S 1,000 ML IV SCH (03:52)
[2023-04-28] MEDS: DEXAMETHASONE SOD PHOS INJ 4 MG/ML SDV IV SCH ×5 (03:53→23:36)
[2023-04-28] MEDS: CLONIDINE HCL 0.1 MG TAB PO SCH ×3 (06:10→23:20)
[2023-04-28] MEDS: PREGABALIN 75 MG CAP PO SCH ×2 (09:12→16:52)
[2023-04-28] MEDS: LOSARTAN POTASSIUM 25 MG TAB PO SCH ×2 (09:13→18:40)
[2023-04-28] MEDS: METOPROLOL SUCCINATE 25 MG TAB XL PO SCH (09:14)
[2023-04-28] MEDS: OXYCODONE/ACETAMINOPHEN 5-325 1 EACH TABLET PO PRN ×2 (09:22→20:07)
[2023-04-28] MEDS ORDERED: ONDANSETRON HCL 4 MG ORAL DISINTEGRATING TAB PO PRN (10:00)
[2023-04-28] MEDS: HYDRALAZINE HCL 20 MG/ML VIAL IV PRN (13:33)
[2023-04-28] MEDS: ACETAMINOPHEN 325 MG TAB PO PRN (20:02)
[2023-04-28] MEDS ORDERED: KETOROLAC TROMETHAMINE 30 MG/ML VIAL IV ONE (22:00)
[2023-04-29] VITALS (11 sets, daily range): BP systolic 154–204; BP diastolic 76–101; PULSE 53–68; RESP 15–18; TEMP 97.6–98.5; O2SAT 96–100
[2023-04-29] MEDS: PREGABALIN 75 MG CAP PO SCH ×4 (03:36→20:32)
[2023-04-29] MEDS: DEXAMETHASONE SOD PHOS INJ 4 MG/ML SDV IV SCH ×4 (05:27→23:35)
[2023-04-29] MEDS: CLONIDINE HCL 0.1 MG TAB PO SCH ×3 (05:27→22:00)
[2023-04-29] MEDS: METOPROLOL SUCCINATE 25 MG TAB XL PO SCH (09:00)
[2023-04-29] MEDS: LOSARTAN POTASSIUM 25 MG TAB PO SCH ×2 (09:00→17:00)
[2023-04-29] MEDS: HYDRALAZINE HCL 20 MG/ML VIAL IV PRN ×2 (10:19→20:38)
[2023-04-29] MEDS: CEPACOL SORE THROAT LOZENGES PO PRN (20:31)
[2023-04-30] VITALS (8 sets, daily range): BP systolic 152–189; BP diastolic 76–103; PULSE 60–77; RESP 14–20; TEMP 97.4–98.4; O2SAT 94–100
[2023-04-30] MEDS: HYDRALAZINE HCL 20 MG/ML VIAL IV PRN ×2 (00:26→08:57)
[2023-04-30] MEDS: CLONIDINE HCL 0.1 MG TAB PO SCH ×4 (00:29→20:22)
[2023-04-30] MEDS: DEXAMETHASONE SOD PHOS INJ 4 MG/ML SDV IV SCH (05:34)
[2023-04-30 07:01] LABS: BASOPHILS % 0.2 % (0.0-1.0)
[2023-04-30 07:44] LABS: ALBUMIN 3.5 g/dL (3.5-5.0); ALBUMIN/GLOBULIN RATIO 1.2 (0.8-2.0); CALCIUM 8.6 mg/dL (8.4-10.2); CREATININE, SERUM 0.71 mg/dL (0.57-1.11)
[2023-04-30] MEDS: METOPROLOL TARTRATE 25 MG TAB PO SCH ×2 (08:56→16:52)
[2023-04-30] MEDS: AMLODIPINE BESYLATE 5 MG TAB PO SCH (08:56)
[2023-04-30] MEDS: PREGABALIN 75 MG CAP PO SCH ×3 (08:56→20:18)
[2023-04-30] MEDS: LOSARTAN POTASSIUM 25 MG TAB PO SCH ×2 (08:57→16:52)
[2023-04-30 09:15] LABS: HEMOGLOBIN 15.5 g/dL (12.0-16.0); RED BLOOD COUNT 5.34 x10e6/uL (3.6-5.1)
[2023-04-30 09:16] LABS: HEMATOCRIT 46.6 % (34.2-44.1); LYMPHOCYTES % 12.2 % (18.0-39.1); MEAN CORPUSCULAR HGB CONC 33.3 g/dL (31-35); MEAN CORPUSCULAR VOLUME 87.3 fL (81-99); MONOCYTES % 3.8 % (4.4-11.3); NEUTROPHILS % 82.6 % (38.7-80.0); PLATELET COUNT 211 x10e3/uL (140-360); RED CELL DISTRIBUTION WIDTH 12.6 % (11.7-14.4)
[2023-04-30 09:17] LABS: LYMPHOCYTES # (AUTO) 1.6 (1.0-3.2); MONOCYTES # (AUTO) 0.5 (0.2-0.8); NEUTROPHILS # (AUTO) 10.8 (2.1-6.9)
[2023-04-30] MEDS: ACETAMINOPHEN 325 MG TAB PO PRN ×2 (12:42→20:18)
[2023-04-30] MEDS ORDERED: AMLODIPINE BESYLATE 10 MG TAB PO ONE (13:30)
[2023-04-30] MEDS ORDERED: LOSARTAN POTASSIUM 100 MG TAB PO ONE (13:30)
[2023-04-30] MEDS: CEPACOL SORE THROAT LOZENGES PO PRN (20:17)
[2023-05-01] VITALS: BP 128/73; PULSE 57; RESP 18; TEMP 98.4; O2SAT 97
[2023-05-01] MEDS: CEPACOL SORE THROAT LOZENGES PO PRN ×2 (01:27→14:10)
[2023-05-01] MEDS: CLONIDINE HCL 0.1 MG TAB PO SCH (06:00)
[2023-05-01] MEDS: HYDRALAZINE HCL 20 MG/ML VIAL IV PRN (06:12)
[2023-05-01 08:07] VITALS: BP 167/86; PULSE 65; RESP 18; TEMP 97.7; O2SAT 97
[2023-05-01 08:14] VITALS: BP 167/86; PULSE 65; RESP 18; TEMP 97.7; O2SAT 97
[2023-05-01] MEDS: AMLODIPINE BESYLATE 5 MG TAB PO SCH (08:46)
[2023-05-01] MEDS: PREGABALIN 75 MG CAP PO SCH ×2 (08:46→15:33)
[2023-05-01] MEDS: METOPROLOL TARTRATE 25 MG TAB PO SCH ×2 (08:47→17:16)
[2023-05-01] MEDS: ACETAMINOPHEN 325 MG TAB PO PRN ×2 (08:47→14:11)
[2023-05-01] MEDS: LOSARTAN POTASSIUM 25 MG TAB PO SCH ×2 (08:48→17:16)
[2023-05-01] MEDS ORDERED: CLONIDINE HCL 0.1 MG TAB PO PRN (10:45)
[2023-05-01] MEDS ORDERED: NIFEDIPINE CR 30 MG TAB PO ONE (11:15)
[2023-05-01 12:06] VITALS: BP 152/98; PULSE 60; RESP 17; TEMP 97.7; O2SAT 100
[2023-05-01 15:37] VITALS: BP 157/77; PULSE 70; RESP 18; TEMP 98.5; O2SAT 100
[2023-05-01] MEDS ORDERED: NIFEDIPINE CR 30 MG TAB PO SCH (17:00)
[2023-05-01] MEDS ORDERED: LOSARTAN POTASS25 MG PO (18:30)
[2023-05-01] MEDS ORDERED: LYRICA75 MG PO (18:31)
[2023-05-01] MEDS ORDERED: METOPROLOL TART25 MG PO (18:31)
[2023-05-01] MEDS ORDERED: PROCARDIA XL30 MG (18:31)
[2023-05-01] MEDS ORDERED: CRESTOR 10MG PO SCH (21:00)
== END 2023-05-02 07:16 | disposition home or self-care (01) | DRG 983 ==
LOC: ER 14:44 → ERHOLD 19:22 → MED/SURG2 21:23 → OBSVTOIN 04-27 08:45
PROVIDERS: ADMIT Family Medicine; ATTEND Family Medicine
PROC: 0RB30ZZ Excision of Cervical Vertebral Disc, Open Approach (ICD-10-PCS; 2023-04-27)
PROC: 00NW0ZZ Release Cervical Spinal Cord, Open Approach (ICD-10-PCS; 2023-04-27)
PROC: 0RG10K0 Fusion of Cervical Vertebral Joint with Nonautologous Tissue Substitute, Anterior Approach, Anterior Column, Open Approach (ICD-10-PCS; principal; 2023-04-27 11:18)
DX: I16.9 Hypertensive crisis, unspecified (principal); M50.121 Cervical disc disorder at C4-C5 level with radiculopathy; I10 Essential (primary) hypertension; G44.89 Other headache syndrome; E78.5 Hyperlipidemia, unspecified; F41.9 Anxiety disorder, unspecified; Z20.822 Contact with and (suspected) exposure to COVID-19; Z87.891 Personal history of nicotine dependence
CPT/HCPCS: 36415; 70450; 70496; 70498; 71045; 72040; 72141; 76000; 80048; 80053; 80061; 82550; 83735; 84484; 84702; 85025; 88304; 88311; 93005; 99284; C1713; G0378; J0690; J1100; J1885; J2001; J2270; J2405; J2765; J2920; J7050; Q9967

== ENCOUNTER 2023-05-01 19:24 | Emergency (ER) | payer OTHER ==
[~2023-05-01] VITALS: Ht 167.6 cm; Wt 102.1 kg
[~2023-05-01 19:24] MED LIST changes: +HYDROCODON-ACE1 EAC9 PO; +LOSARTAN POTASS25 MG PO; +LYRICA75 MG PO; +METOPROLOL TART25 MG PO; +PROCARDIA XL30 MG; +VALIUM5 MG PO
[2023-05-01 19:50] LABS: BASOPHILS % 0.2 % (0.0-1.0); EOSINOPHILS # (AUTO) 0.1 (0.0-0.4); EOSINOPHILS % 0.5 % (0.0-6.0); HEMATOCRIT 46.4 % (34.2-44.1); HEMOGLOBIN 16.1 g/dL (12.0-16.0); LYMPHOCYTES # (AUTO) 5.6 (1.0-3.2); LYMPHOCYTES % 26.8 % (18.0-39.1); MEAN CORPUSCULAR HEMOGLOBIN 29.1 pg (28-32); MEAN CORPUSCULAR HGB CONC 34.7 g/dL (31-35); MEAN CORPUSCULAR VOLUME 83.9 fL (81-99); MONOCYTES # (AUTO) 1.8 (0.2-0.8); MONOCYTES % 8.4 % (4.4-11.3); NEUTROPHILS # (AUTO) 13.2 (2.1-6.9); NEUTROPHILS % 63.1 % (38.7-80.0); PLATELET COUNT 244 x10e3/uL (140-360); RED BLOOD COUNT 5.53 x10e6/uL (3.6-5.1)
[2023-05-01 20:03] LABS: ALBUMIN 3.6 g/dL (3.5-5.0); ALBUMIN/GLOBULIN RATIO 1.2 (0.8-2.0); ANION GAP 14.5 mmol/L (8-16); CALCIUM 9.1 mg/dL (8.4-10.2); CREATININE, SERUM 0.81 mg/dL (0.57-1.11); POTASSIUM 3.5 mmol/L (3.5-5.1)
[2023-05-01] MEDS ORDERED: IOPAMIDOL 370 MG/ML 100 ML INFUS..BTL INJ ONE (20:15)
[2023-05-01] MEDS ORDERED: ACETAMINOPHEN 325 MG TAB PO ONE (21:15)
[2023-05-01] MEDS ORDERED: DEXAMETHASONE SOD PHOS 10 MG/1 ML VIAL IV ONE (22:45)
[2023-05-02 00:57] VITALS: BP 155/98; PULSE 62; RESP 17; TEMP 97.9; O2SAT 97
== END 2023-05-02 01:05 | disposition other institution (70) ==
LOC: ER 19:31
DX: H54.3 Unqualified visual loss, both eyes (principal); I10 Essential (primary) hypertension; Z20.822 Contact with and (suspected) exposure to COVID-19
CPT/HCPCS: 36415; 70450; 70496; 70498; 80053; 84702; 85025; 99284; J1100; Q9967; U0002